=== PATIENT | male | born 1995 | race Caucasian/White ===

== ENCOUNTER 2016-04-12 19:16 | Emergency (ER) | payer OTHER ==
[~2016-04-12] VITALS: Ht 170.2 cm; Wt 80.6 kg
[~2016-04-12 19:16] MED LIST: BACTRIM DS1 TAB PO; CEPHALEXIN500 MG PO; CIPROFLOXACN500 MG PO; DENIES CURRENT MEDS; DOXYCYCL HYC100 MG PO; LORTAB 1010 MG PO
[2016-04-12 19:29] VITALS: BP 137/78
[2016-04-12] MEDS ORDERED: COLACE100 MG PO (20:47)
== END 2016-04-12 21:01 | disposition home or self-care (01) | DRG 395 ==
LOC: ED 19:16
DX: K64.9 Unspecified hemorrhoids (principal)

== ENCOUNTER 2017-08-26 08:44 | Emergency (ER) | payer SELFPAY ==
[~2017-08-26] VITALS: Ht 170.2 cm; Wt 88.0 kg
[~2017-08-26 08:44] MED LIST changes: +COLACE100 MG PO
[2017-08-26] MEDS ORDERED: FLOXIN OTIC0.3 % OT ×2 (09:10→09:16)
[2017-08-26] MEDS ORDERED: AMOXICILLIN500 MG PO ×2 (09:10→09:16)
[2017-08-26 09:13] VITALS: BP 128/85
== END 2017-08-26 09:17 | disposition home or self-care (01) | DRG 156 ==
LOC: ED 08:44
DX: H60.93 Unspecified otitis externa, bilateral (principal)